=== PATIENT | female | born 1985 | race African-American/Black ===

== ENCOUNTER 2016-08-07 09:30 | Emergency (ER) | payer MEDICAID ==
[~2016-08-07] VITALS: Ht 165.1 cm; Wt 97.5 kg
[2016-08-07 09:57] VITALS: BP 130/82
[2016-08-07] MEDS ORDERED: methylPREDNISolone SOD SUCC 125 MG/2 ML VL IM ONE (10:30)
[2016-08-07] MEDS ORDERED: cefTRIAXone SOD 1,000 MG VL IM ONE (10:30)
== END 2016-08-07 11:16 | disposition home or self-care (01) ==
LOC: ER 09:30
DX: J03.90 Acute tonsillitis, unspecified (principal); J45.909 Unspecified asthma, uncomplicated; Z88.0 Allergy status to penicillin
CPT/HCPCS: 96372; 99284; J0696; J2930

== ENCOUNTER 2019-02-20 09:25 | Emergency (ER) | payer MEDICAID ==
[~2019-02-20] VITALS: Ht 167.6 cm; Wt 100.2 kg
[2019-02-20 11:03] VITALS: BP 112/82
[2019-02-20 11:35] LABS: Urine Bacteria NONE SEEN /hpf (None Seen); Urine Blood Negative /uL (Negative); Urine Specific Gravity 1.003 (1.001-1.035); Urine WBC <1 /hpf (0 - 5)
== END 2019-02-20 12:50 | disposition home or self-care (01) ==
LOC: ER 09:27
DX: B37.3 Candidiasis of vulva and vagina (principal); J02.9 Acute pharyngitis, unspecified; Z88.0 Allergy status to penicillin
CPT/HCPCS: 81001

== ENCOUNTER 2019-03-02 09:00 | Emergency (ER) | payer SELFPAY ==
[~2019-03-02] VITALS: Ht 167.6 cm; Wt 101.6 kg
[2019-03-02 12:29] VITALS: BP 127/81
[2019-03-02] MEDS ORDERED: HYDROcodone-ACET 5/325MG TAB PO ONE (12:45)
== END 2019-03-02 13:17 | disposition home or self-care (01) ==
LOC: ER 09:00
DX: R51 Headache (principal); F41.9 Anxiety disorder, unspecified; J45.909 Unspecified asthma, uncomplicated; Z88.0 Allergy status to penicillin
CPT/HCPCS: 70450

== ENCOUNTER 2019-03-16 18:44 | Emergency (ER) | payer MEDICAID ==
[~2019-03-16] VITALS: Ht 167.6 cm; Wt 102.5 kg
[2019-03-16 19:34] LABS: Urine Bacteria MOD /hpf (None Seen); Urine Blood 1+ /uL (Negative); Urine Mucus FEW (None Seen); Urine Specific Gravity 1.005 (1.001-1.035); Urine WBC 304 /hpf (0 - 5); Urine WBC Clumps PRESENT /hpf (None Seen)
[2019-03-16] MEDS ORDERED: PHENAZOPYRIDINE HCL 100 MG TAB PO ONE (21:00)
[2019-03-16] MEDS ORDERED: cefTRIAXone SOD 1,000 MG VL IM ONE (21:00)
[2019-03-16 21:39] VITALS: BP 143/94
== END 2019-03-16 21:51 | disposition home or self-care (01) ==
LOC: ER 18:44
DX: N39.0 Urinary tract infection, site not specified (principal); J45.909 Unspecified asthma, uncomplicated
CPT/HCPCS: 74018; 81001; 81025; 96372; 99284; J0696

== ENCOUNTER 2019-04-02 12:15 | Emergency (ER) | payer MEDICAID ==
[~2019-04-02] VITALS: Ht 167.6 cm; Wt 100.2 kg
[2019-04-02 16:23] VITALS: BP 146/86
[2019-04-02] MEDS ORDERED: HYDROcodone-ACET 5/325MG TAB PO ONE (16:30)
[2019-04-02 16:33] LABS: Urine Bacteria FEW /hpf (None Seen); Urine Blood Negative /uL (Negative); Urine Specific Gravity 1.004 (1.001-1.035); Urine WBC 26 /hpf (0 - 5)
[2019-04-02 17:03] LABS: Basophils # (auto) 0.1 uL; Eosinophils # (auto) 0.2 uL; Mean Corpuscular Hemoglobin 26.6 pg (28.0-32.0); Monocytes # (auto) 0.3 uL
[2019-04-02 17:05] LABS: Basophils % (auto) 1.3 % (0.0-2.0); Eosinophils % (auto) 4.2 % (0.0-7.0); Hemoglobin 13.8 g/dL (12.2-16.2); Lymphocytes # (auto) 1.6 uL; Lymphocytes % (auto) 30.6 % (10.0-50.0); Mean Corpuscular Hgb Conc. 32.1 g/dL (32.0-36.0); Mean Corpuscular Volume 82.9 fL (80.0-100.0); Monocytes % (auto) 4.8 % (0.0-12.0); Neutrophils # (auto) 3.2 uL; Neutrophils % (auto) 59.1 % (37.0-80.0); Nucleated Red Blood Cells % 0.2 %; Platelet Count (auto) 204 10^3/uL (140-450); Red Blood Cells 5.19 10^6/uL (4.0-5.20); Red Cell Distribution Width 14.1 % (11.8-14.3); White Blood Cell 5.3 10^3/uL (4.4-10.8)
[2019-04-02 17:28] LABS: Albumin 4.1 g/dL (3.4-5.0); BUN/Creatinine Ratio 11.6; Bilirubin, Total 0.2 mg/dL (0.2-1.0); Calcium 8.5 mg/dL (8.5-10.1); Potassium 3.6 mmol/L (3.5-5.1); Total Protein 8.3 g/dL (6.4-8.2)
[2019-04-02] MEDS ORDERED: KETOROLAC TROMETH 60MG/2ML VIAL IM ONE (17:30)
== END 2019-04-02 18:20 | disposition home or self-care (01) ==
LOC: ER 12:17
DX: G93.2 Benign intracranial hypertension (principal); F41.9 Anxiety disorder, unspecified; J45.909 Unspecified asthma, uncomplicated; I10 Essential (primary) hypertension; Z88.0 Allergy status to penicillin
CPT/HCPCS: 36415; 70450; 80053; 81001; 81025; 85025; 96372; 99284; J1885

== ENCOUNTER 2019-05-07 12:59 | Inpatient (IN) | payer SELFPAY ==
[~2019-05-07] VITALS: Ht 167.6 cm; Wt 98.5 kg
[2019-05-07] MEDS ORDERED: LORazepam 2MG/ML-1ML VIAL IV ONE (14:45)
[2019-05-07] MEDS ORDERED: SODIUM CHLORIDE 0.9% 1,000 ML IVB ONE (15:08)
[2019-05-07] MEDS ORDERED: LEVETIRACETAM INJ 1,000 MG in D5W 5% 100 ML IV ONE (15:15)
[2019-05-07 15:49] LABS: Alcohol, Urine < 3.0 mg/dL (0-5); Amphetamine Screen, Urine NEGATIVE (NEGATIVE); Barbiturate Scree,Urine POSITIVE (NEGATIVE); Benzodiazephine Screen, Urine NEGATIVE (NEGATIVE); Cannabinoid Screen, Urine POSITIVE (NEGATIVE); Cocaine Screen, Urine NEGATIVE (NEGATIVE); Opiate Scree,Urine NEGATIVE (NEGATIVE); Phencyclidine Screen, Urine NEGATIVE (NEGATIVE)
[2019-05-07 16:49] LABS: Urine Bacteria FEW /hpf (None Seen); Urine Blood Negative /uL (Negative); Urine Specific Gravity 1.003 (1.001-1.035); Urine WBC 1 /hpf (0 - 5)
[2019-05-07 22:45] LABS: Basophils # (auto) 0 uL; Eosinophils # (auto) 0.1 uL; Eosinophils % (auto) 1.7 % (0.0-7.0); Hematocrit 39.1 % (36.0-46.0); Lymphocytes # (auto) 1.4 uL; Lymphocytes % (auto) 28.1 % (10.0-50.0); Mean Corpuscular Hemoglobin 26.7 pg (28.0-32.0); Mean Corpuscular Hgb Conc. 30.8 g/dL (32.0-36.0); Mean Corpuscular Volume 86.7 fL (80.0-100.0); Monocytes # (auto) 0.4 uL; Monocytes % (auto) 7.5 % (0.0-12.0); Neutrophils % (auto) 61.7 % (37.0-80.0); Nucleated Red Blood Cells % 0.1 %; Platelet Count (auto) 208 10^3/uL (140-450); Red Blood Cells 4.51 10^6/uL (4.0-5.20); Red Cell Distribution Width 14.2 % (11.8-14.3); White Blood Cell 4.9 10^3/uL (4.4-10.8)
[2019-05-07 23:04] LABS: BUN/Creatinine Ratio 5.2; Calcium 8.1 mg/dL (8.5-10.1); Magnesium 2.2 mg/dL (1.6-2.6); Potassium 3.2 mmol/L (3.5-5.1)
[2019-05-07 23:06] LABS: Bilirubin, Total 0.3 mg/dL (0.2-1.0); Total Protein 6.1 g/dL (6.4-8.2)
[2019-05-07] MEDS ORDERED: HYDROcodone-ACET 5/325MG TAB PO PRN (23:30)
[2019-05-07] MEDS ORDERED: ONDANSETRON HCL 4 MG/2 ML VIAL IV PRN (23:30)
[2019-05-08] VITALS (7 sets, daily range): BP systolic 93–116; BP diastolic 55–84
[2019-05-08] MEDS: SODIUM CHLORIDE 0.9% 1,000 ML IV SCH ×3 (00:05→01:25)
--- NOTE | 2019-05-08 01:40 | NUR ---
MS admit from ER OSKARSWATHI admitted to tele/MS after SBAR received. Patient oriented to Eileen Marks, primary RN, unit, room, bed, and unit policies regarding patient care and visiting hours. Patient weighed by bed scale and encouraged to call if they need something. All questions and concerns addressed, patient verbalized understanding.
[2019-05-08] MEDS: MORPHINE SULFATE 4 MG/ML SYR/VIAL IV PRN ×3 (01:58→20:58)
--- NOTE | 2019-05-08 02:00 | NUR ---
UNABLE TO FIND IV POLE AND PUMP TO RUN FLUIDS. WENT TO CENTRAL AND WEST UNITS TO ASK FOR ANY EXTRA PUMPS AND POLES, THERE WERE NONE AVAILABLE AT THIS TIME
--- NOTE | 2019-05-08 04:54 | NUR ---
MRSA SWAB SENT TO LAB
[2019-05-08] MEDS ORDERED: HCTZ25T GT (05:17)
[2019-05-08] MEDS ORDERED: TRAM50TA2 PO (05:17)
[2019-05-08] MEDS ORDERED: LEVE500T22 PO (05:17)
[2019-05-08] MEDS ORDERED: LEVE100012 PO (05:17)
[2019-05-08] MEDS ORDERED: FAMO-12 PO (05:17)
[2019-05-08] MEDS ORDERED: ACET250T3 PO (05:17)
[2019-05-08] MEDS ORDERED: LISI-646 PO (05:17)
[2019-05-08] MEDS ORDERED: HYDR-4072 PO (05:17)
--- NOTE | 2019-05-08 06:08 | NUR ---
PATIENT REFUSED BLOOD DRAW
--- NOTE | 2019-05-08 08:00 | NUR ---
Opening Shift Note Received report on the patient. Awake lying in bed. Patient shows no signs of distress at this time. Discussed plan of care with the patient. Bed in lowest position, side rails up x2, and call light is within reach. Will continue to monitor.
[2019-05-08] MEDS ORDERED: LEVETIRACETAM INJ 500 MG in D5W 5% 100 ML IV SCH (10:00)
[2019-05-08 10:15] LABS: Basophils # (auto) 0 uL; Basophils % (auto) 0.9 % (0.0-2.0); Eosinophils # (auto) 0.1 uL; Hematocrit 37.7 % (36.0-46.0); Hemoglobin 12.2 g/dL (12.2-16.2); Lymphocytes # (auto) 1.5 uL; Lymphocytes % (auto) 28.7 % (10.0-50.0); Mean Corpuscular Hgb Conc. 32.5 g/dL (32.0-36.0); Monocytes # (auto) 0.3 uL; Monocytes % (auto) 5.8 % (0.0-12.0); Neutrophils # (auto) 3.2 uL; Neutrophils % (auto) 62.6 % (37.0-80.0); Nucleated Red Blood Cells % 0.1 %; Platelet Count (auto) 195 10^3/uL (140-450); Red Blood Cells 4.54 10^6/uL (4.0-5.20); Red Cell Distribution Width 13.7 % (11.8-14.3); White Blood Cell 5.1 10^3/uL (4.4-10.8)
[2019-05-08 10:35] LABS: BUN/Creatinine Ratio 1.5; Calcium 8.5 mg/dL (8.5-10.1)
[2019-05-08] MEDS ORDERED: LEVETIRACETAM 500 MG TAB PO ONE (11:45)
[2019-05-08] MEDS ORDERED: POTASSIUM CHL 20 Meq TABLET PO ONE (11:45)
[2019-05-08] MEDS ORDERED: POTASSIUM EFFERVESENT TAB 25 MEQ GT ONE (11:45)
[2019-05-08] MEDS ORDERED: TOPIRAMATE 100 MG TAB PO ONE (11:45)
[2019-05-08] MEDS ORDERED: FAMOTIDINE 20 MG TAB PO ONE (13:16)
[2019-05-08] MEDS ORDERED: CATHFLO ACTIVASE (ALTEPLASE) 2 MG VIAL IV ONE (16:45)
--- NOTE | 2019-05-08 19:25 | NUR ---
OPENING NOTE- NOC SHIFT PATIENT IS ALERT AND ORIENTED X4, ANSWERS IN COMPLETE SENTENCES AND MAKES APPROPRIATE EYE CONTACT. PATIENT IS IN BED, BED IS LOCKED IN LOWEST POSITION, BED RAILS UP X2 AND HEAD OF BED IS UP<30 DEGREES FOR SAFETY PRECAUTIONS. BEDSIDE TABLE WITHIN REACH, PERSONAL BELONGINGS WITHIN REACH, CALL LIGHT WITHIN REACH. DISCUSSED POC WITH PATIENT AND INSTRUCTED PATIENT TO CALL PRN; PATIENT VERBALIZED UNDERSTANDING. WILL CONTINUE TO MONITOR Q1H AND PRN.
--- NOTE | 2019-05-08 19:30 | NUR ---
PATIENT INFORMED THAT FLUSH OF OSMAN CATH WITH CATHFLO ACTIVASE WILL BE DONE WITH CHARGE NURSE. CHARGE NURSE JAKI MORRISON AWARE.
--- NOTE | 2019-05-08 20:20 | NUR ---
OSMAN CATH FLUSHED WITH CATHFLO ACTIVASE PER MD ORDERS ON eMAR. PATENT AND FLUSHING WELL.
[2019-05-08] MEDS: LEVETIRACETAM 500 MG TAB PO SCH (21:59)
[2019-05-08] MEDS: acetaZOLAMIDE 250 MG TAB PO SCH (22:00)
[2019-05-08] MEDS ORDERED: LEVETIRACETAM 500 MG TAB PO SCH (22:00)
[2019-05-08] MEDS: FAMOTIDINE 20 MG TAB PO SCH (22:00)
[2019-05-08] MEDS: TOPIRAMATE 100 MG TAB PO SCH (22:00)
[2019-05-08] MEDS ORDERED: TOPIRAMATE 100 MG TAB PO SCH (22:00)
[2019-05-09] MEDS: MORPHINE SULFATE 4 MG/ML SYR/VIAL IV PRN ×5 (02:38→20:39)
[2019-05-09] MEDS: HYDROcodone-ACET 10/325MG TAB PO PRN (04:17)
--- NOTE | 2019-05-09 04:20 | NUR ---
PATIENT COMPLAINING OF HEADACHE 9/10 ADULT NUMERIC PAIN SCALE. PATIENT DESCRIBES PAIN PRESSURE TO BACK OF EYES. ADMINISTERED PAIN MEDICATION ORDERED BY MD PER eMAR.
[2019-05-09 05:42] VITALS: BP 95/61
--- NOTE | 2019-05-09 05:59 | NUR ---
PORT A CATH ACCESSED FOR ORDERED LABS. BLOOD DRAW SUCCESSFUL.
[2019-05-09 06:20] LABS: Basophils # (auto) 0 uL; Basophils % (auto) 0.9 % (0.0-2.0); Eosinophils # (auto) 0.2 uL; Eosinophils % (auto) 4.5 % (0.0-7.0); Hematocrit 31.4 % (36.0-46.0); Hemoglobin 10.4 g/dL (12.2-16.2); Lymphocytes # (auto) 1.3 uL; Mean Corpuscular Hemoglobin 27.4 pg (28.0-32.0); Mean Corpuscular Hgb Conc. 33.1 g/dL (32.0-36.0); Mean Corpuscular Volume 82.7 fL (80.0-100.0); Monocytes # (auto) 0.2 uL; Monocytes % (auto) 6.8 % (0.0-12.0); Neutrophils # (auto) 1.9 uL; Neutrophils % (auto) 51.8 % (37.0-80.0); Platelet Count (auto) 173 10^3/uL (140-450); Red Blood Cells 3.79 10^6/uL (4.0-5.20); Red Cell Distribution Width 13.6 % (11.8-14.3); White Blood Cell 3.6 10^3/uL (4.4-10.8)
[2019-05-09 06:40] LABS: Calcium 7.2 mg/dL (8.5-10.1); Potassium 3.3 mmol/L (3.5-5.1)
[2019-05-09 06:42] LABS: BUN/Creatinine Ratio 3.7
--- NOTE | 2019-05-09 07:10 | NUR ---
ENDORSED PATIENT CARE TO DAY SHIFT NURSE ALBERTO MORRISON PATIENT IS RESTING IN BED. NO S/SX OF DISTRESS OR SOB.
[2019-05-09 09:00] VITALS: BP 99/63
[2019-05-09] MEDS: FAMOTIDINE 20 MG TAB PO SCH ×2 (10:00→21:49)
[2019-05-09] MEDS: acetaZOLAMIDE 250 MG TAB PO SCH ×2 (10:00→21:43)
[2019-05-09] MEDS: LEVETIRACETAM 500 MG TAB PO SCH ×2 (11:17→21:48)
[2019-05-09] MEDS: LORazepam 0.5 MG TAB PO PRN ×2 (11:18→22:57)
[2019-05-09] MEDS: TOPIRAMATE 100 MG TAB PO SCH ×2 (11:18→21:49)
--- NOTE | 2019-05-09 12:13 | NUR ---
Nutrition consult/assessment Notes please see attcahed link for complete assessment Est. Needs [id number] kcal (23-25 kcal/kgBW), 75-82 gms pro (1.0-1.1gms/kgBW). Will continue to monitor pertinent labs and reassess nutrient need prn Addendum: 05/09/19 at [address] Amended: Links added.
[2019-05-09 13:00] VITALS: BP 112/81
--- NOTE | 2019-05-09 14:08 | NUR ---
CALL PLACED TO DR CAMACHO OFFICE TO F/U ON CONSULT.
--- NOTE | 2019-05-09 16:35 | NUR ---
AT THIS POINT NO RETURN CALL FROM DR CAMACHO'S OFFICE. CONSENT SIGNED BY PT TO RELEASE INFORMATION FROM HER PREVIOUS NEUROLOGIST IN [facility].
[2019-05-09 16:57] VITALS: BP 149/70
--- NOTE | 2019-05-09 19:00 | NUR ---
OPENING NOTE- NOC SHIFT PATIENT IS ALERT AND ORIENTED X4. PATIENT STATES THAT GENERALIZED BODY PAIN AND HEADACHES ARE CONTINUOUS 9/10 AND THAT PAIN MEDICATION ONLY ALLEVIATES THE PAIN FOR ABOUT AN HOUR. PATIENT IS COMFORTABLE IN BED AT THIS TIME. NO S/SX OF DISTRESS OR SOB NOTED. PATIENT IS SITTING UP IN BED WATCHING TV. BED IS LOCKED AT LOWEST POSITION AND BED RAILS ARE UP X2 AND PADDED FOR SEIZURE PRECAUTIONS. DISCUSSED POC WITH PATIENT AND INSTRUCTED PATIENT TO CALL USING CALL LIGHT PRN; PATIENT VERBALIZED UNDERSTANDING. WILL CONTINUE TO MONITOR Q1H AND PRN.
[2019-05-09] MEDS ORDERED: POTASSIUM CHL 20 Meq TABLET PO ONE (21:15)
--- NOTE | 2019-05-09 21:30 | NUR ---
DR CAMACHO ON FLOOR. INFORMED DR OF PENDING CONSULTATION FOR PATIENT. DR CAMACHO STATED THAT HE IS AWARE OF PENDING ORDERED CONSULTATION FOR TWO DAYS BUT HE WILL NOT BE SEEING THE PATIENT TONIGHT. WILL ENDORSE FOLLOW UP TO DAY SHIFT NURSE.
[2019-05-09 22:00] VITALS: BP 90/58
--- NOTE | 2019-05-09 23:09 | NUR ---
PATIENT REQUESTING MORPHINE EVERY TWO HOURS. PATIENT IS AWARE THAT MD PRESCRIPTION IS Q4.
[2019-05-10] MEDS: MORPHINE SULFATE 4 MG/ML SYR/VIAL IV PRN ×5 (01:50→22:53)
[2019-05-10 05:00] VITALS: BP 109/69
--- NOTE | 2019-05-10 05:25 | NUR ---
PATIENT STATES THAT SHE IS FEELING "TINGLY" AT HER FEET AND THAT SHE FEELS THIS BEFORE A SEIZURE. PEDAL PULSES ARE PRESENT AND STRONG, FEET ARE WARM. VITAL SIGNS ARE WITHIN NORMAL LIMITS. PATIENT REQUESTED PRN FOR ANXIETY. WILL ADMINISTER ATIVAN PER MD ORDERS ON eMAR. BED IS LOCKED AT LOWEST POSITION, BED RAILS UP X2 AND PADDED FOR SEIZURE PRECAUTIONS.
[2019-05-10] MEDS: LORazepam 0.5 MG TAB PO PRN ×2 (05:30→13:37)
--- NOTE | 2019-05-10 07:24 | NUR ---
ENDORSED PATIENT CARE TO DAY SHIFT NURSE ALBERTO MORRISON. PATIENT IS COMFORTABLE IN BED. NO S/SX OF DISTRESS, SOB OR PAIN.
[2019-05-10] MEDS: HYDROcodone-ACET 10/325MG TAB PO PRN (08:33)
[2019-05-10 08:52] LABS: Basophils # (auto) 0 uL; Eosinophils # (auto) 0.2 uL; Hemoglobin 11.5 g/dL (12.2-16.2); Monocytes # (auto) 0.3 uL; Nucleated Red Blood Cells % 0.1 %; Red Cell Distribution Width 13.7 % (11.8-14.3)
[2019-05-10 08:55] LABS: Basophils % (auto) 1.3 % (0.0-2.0); Eosinophils % (auto) 4.6 % (0.0-7.0); Hematocrit 35.7 % (36.0-46.0); Lymphocytes # (auto) 1.3 uL; Lymphocytes % (auto) 34.5 % (10.0-50.0); Mean Corpuscular Hemoglobin 26.8 pg (28.0-32.0); Mean Corpuscular Hgb Conc. 32.2 g/dL (32.0-36.0); Mean Corpuscular Volume 83.4 fL (80.0-100.0); Monocytes % (auto) 7.6 % (0.0-12.0); Platelet Count (auto) 203 10^3/uL (140-450); Red Blood Cells 4.29 10^6/uL (4.0-5.20); White Blood Cell 3.8 10^3/uL (4.4-10.8)
[2019-05-10 09:00] VITALS: BP 99/66
[2019-05-10 09:05] LABS: Calcium 8.1 mg/dL (8.5-10.1); Potassium 3.8 mmol/L (3.5-5.1)
[2019-05-10 09:08] LABS: BUN/Creatinine Ratio 4.1
[2019-05-10] MEDS: FAMOTIDINE 20 MG TAB PO SCH ×2 (10:00→21:57)
[2019-05-10] MEDS: acetaZOLAMIDE 250 MG TAB PO SCH ×2 (10:00→21:57)
[2019-05-10] MEDS ORDERED: LORazepam 2MG/ML-1ML VIAL IV PRN ×2 (10:30)
[2019-05-10] MEDS: LEVETIRACETAM 500 MG TAB PO SCH ×2 (11:42→21:56)
[2019-05-10] MEDS: TOPIRAMATE 100 MG TAB PO SCH ×2 (11:42→21:56)
[2019-05-10 13:00] VITALS: BP 109/77
--- NOTE | 2019-05-10 13:00 | NUR ---
DR REESE ROUNDED ON PT. CALL PLACED X 2 PER FIELD MACHINIST TO PT FORMER NEUROLOGIST OFFICE, DR ANTOINETTE ROTH IN [place]. MAILBOX IS FULL, UNABLE TO LEAVE MESSAGE FOR DR OFFICE. RELEASE OF INFORMATION FAXED AND PHONE CALL PLACED YESTERDAY 05/09 PER FIELD MACHINIST.
[2019-05-10 17:00] VITALS: BP 91/54
--- NOTE | 2019-05-10 17:25 | NUR ---
ACCIDENT EXAMINER SPOKE WITH ASHLI AT THE OFFICE OF DR. ANTOINETTE ROTH, PT NEUROLOGIST IN [place]. STATED NO ONE WAS IN MEDICAL RECORDS TO FAX US REQUESTED RECORDS. TO CALL BACK TOMORROW 05/11 AND REQUEST RECORDS AGAIN. DR REESE UPDATED OF PROGRESS VIA TELEPHONE.
--- NOTE | 2019-05-10 17:59 | NUR ---
PT REQUESTING PAIN MEDS, B/P 91/54. EDUCATED PT ON THE SIDE EFFECTS OF MORPHINE. WILL CONTINUE TO MONITOR V/S.
[2019-05-10 18:42] VITALS: BP 110/86
--- NOTE | 2019-05-10 19:40 | NUR ---
Opening Shift Note Assumed care of patient, awake and alert. No S/S of distress/SOB or pain. Instructed on POC and to call for assist PRN, will continue to monitor for changes Q1hr and PRN.
[2019-05-10 22:00] VITALS: BP 84/56
[2019-05-11] MEDS: MORPHINE SULFATE 4 MG/ML SYR/VIAL IV PRN ×3 (04:44→13:33)
[2019-05-11 05:00] VITALS: BP 89/56
[2019-05-11 06:27] LABS: Calcium 8.1 mg/dL (8.5-10.1); Potassium 3.7 mmol/L (3.5-5.1)
[2019-05-11 06:29] LABS: BUN/Creatinine Ratio 5.2
--- NOTE | 2019-05-11 07:15 | NUR ---
Report given to oncoming RN.
[2019-05-11] MEDS: HYDROcodone-ACET 10/325MG TAB PO PRN ×2 (07:50→16:53)
[2019-05-11 09:00] VITALS: BP 96/58
[2019-05-11] MEDS: acetaZOLAMIDE 250 MG TAB PO SCH (09:23)
[2019-05-11] MEDS: LEVETIRACETAM 500 MG TAB PO SCH (09:24)
[2019-05-11] MEDS: FAMOTIDINE 20 MG TAB PO SCH (09:24)
[2019-05-11] MEDS: TOPIRAMATE 100 MG TAB PO SCH (09:24)
--- NOTE | 2019-05-11 11:13 | NUR ---
CALLED TO NEUROLOGY OFFICE AGAIN IN [place], ATTEMPTING TO GET MEDICAL RECORDS FOR PT. LEFT MESSAGE.
--- NOTE | 2019-05-11 12:59 | NUR ---
PT STATED SHE USED A [facility] IN [facility]. CALL PLACED TO PHARMACY, SPOKE WITH PHARMACIST WHO STATED PT HAS NOT USED THAT PHARMACY, SHE HAS NO RECORDS THERE.
[2019-05-11 13:00] VITALS: BP 112/70
[2019-05-11] MEDS ORDERED: BUTA50TA36 OR (14:11)
[2019-05-11 16:26] VITALS: BP 112/70
[2019-05-11 16:55] VITALS: BP 121/78
--- NOTE | 2019-05-11 18:15 | NUR ---
discharge instructions and rx given to pt. all paperwork signed. mediport to right chest de-accessed. currently pt awaiting ride home.
--- NOTE | 2019-05-11 18:31 | NUR ---
pt discharged home with family in attendance.
== END 2019-05-11 18:25 | disposition home or self-care (01) | DRG 101 ==
LOC: ER 12:59 → EDBD 12:59 → MERGE 13:00 → OVERFLOW 13:00 → EAST 05-08 01:34
PROVIDERS: ADMIT Hospitalist; ATTEND Internal Medicine Nephrology
DX: R56.9 Unspecified convulsions (principal); E87.6 Hypokalemia; E66.9 Obesity, unspecified; Z68.35 Body mass index [BMI] 35.0-35.9, adult; Z88.0 Allergy status to penicillin
CPT/HCPCS: 36415; 70450; 71045; 80048; 80053; 80307; 81001; 81025; 82962; 83735; 84702; 85025; 87081; 96361; 96365; 96375; G0378; J7060